=== PATIENT | female | born 1940 | race Caucasian/White ===

== ENCOUNTER 2019-11-11 09:44 | Outpatient (CLI) | payer MEDICARE ==
--- NOTE | 2019-11-11 10:11 | RAD ---
XR Hip Rt 2-3 View HISTORY: Right hip pain, shingles COMPARISON: None. FINDINGS: No fracture, dislocation or bony destruction is seen. The joint space is fairly well-mainta ined.
--- NOTE | 2019-11-11 10:12 | RAD ---
XR Femur Rt 2 View STANDARD HISTORY: Right thigh pain and swelling, shingles COMPARISON: None. FINDINGS: There are postop changes of total knee arthroplasty. The right femur is intact.
== END 2019-11-11 09:45 | disposition home or self-care (01) ==
LOC: BICRAD 09:44
PROVIDERS: ATTEND Internal Medicine
DX: M79.651 Pain in right thigh (principal); Z96.651 Presence of right artificial knee joint